=== PATIENT | female | born 1935 | race Caucasian/White ===

== ENCOUNTER 2017-04-07 13:13 | Inpatient (IN) | payer OTHER, BC ==
[~2017-04-07] VITALS: Ht 149.9 cm; Wt 70.4 kg
[~2017-04-07 13:13] MED LIST: ABILIFY5 MG PO; ADVAIR 250/501 DISK IH; ALENDRONATE SOD10 MG PO; ALENDRONATE SOD70 MG PO; ASPIR-TRIN325 M1 PO; ASPIRIN325 MG PO; ATORVASTATIN CA20 MG PO; AVALIDE 300-121 EACH PO; BENADRYL ALLERG25 MG PO; BUSPIRONE HCL15 MG PO; BUSPIRONE HCL30 MG PO; CALCIUM + D TA1 EACH PO; CALCIUM 600 +1 EAC3 PO; CLINDAMYCIN HC300 MG PO; COLACE100 MG PO; COZAAR100 MG PO; DOCUSATE SODIU100 MG PO; FIBER THERAPY660 G1 PO; FLUTICASONE PRO16 GM BOTH NARES; GABAPENTIN300 MG PO; HYDROCHLOROTHIA25 MG PO; INDERAL LA80 MG PO; K-TAB10 MEQ PO; LASIX20 MG PO; LIPITOR20 MG PO; LORATADINE10 M2 PO; LOSARTAN POTAS100 MG PO; MELOXICAM7.5 MG; MELOXICAM7.5 MG PO; METAMUCIL POWD798 GM PO; MOBIC7.5 MG PO; MUCINEX DM ER1 EACH PO; MUCINEX DM1 TABLET PO; MULTIVITAMIN1 EAC1 PO; MYSOLINE50 M1 PO; OMEPRAZOLE20 M3 PO; PHENOBARBITAL30 MG PO; PRILOSEC20 MG PO; PRIMADONE PO; PROAIR HFA8.5 GM IH; Q-TUSSIN DM SY240 ML PO; SENOKOT8.6 MG PO; SERTRALINE HCL100 MG PO; SPIRIVA1 INHALATI IH; TAB-A-VITE1 EACH PO; TRAZODONE HCL50 MG PO; VITAMIN D1000 UNIT PO; ZOLOFT100 MG PO; [UNRECOGNIZED DRUG - OTHER] PO
[2017-04-07 16:02] LABS: EOSINOPHIL COUNT 0.1 K/uL (0-0.3); HEMATOCRIT 38.2 % (36.0-46.0); IMMATURE GRANULOCYTE (%) 0.5 % (0.0-0.7); IMMATURE GRANULOCYTE COUNT 0.1 K/uL; INSTRUMENT ABS NEUTROPHIL CT 10.8 K/uL; LYMPHOCYTE COUNT 0.9 K/uL (1.0-2.8); MCH 27.9 PG (29.0-34.0); MCHC 33.8 G/DL (30.0-36.0); MCV 82.7 FL (83-99); MEAN PLAT.VOLUME 8.8 uM^3 (9.5-12.4); MONOCYTE (%) 7.2 % (3-12); MONOCYTE COUNT 0.9 K/uL (0-0.8); NEUTROPHIL (%) 84.2 % (45-76); NEUTROPHIL COUNT 10.8 K/uL (1.8-6.4); PLATELET COUNT 303 K/uL (156-360); RBC DIS.WIDTH-CV 14.1 % (11.8-14.6); RED BLOOD COUNT 4.62 M/uL (3.80-5.20); WHITE BLOOD COUNT 12.8 K/uL (4.1-10.2)
[2017-04-07 16:11] LABS: CHLORIDE 91 mEq/L (99-109); POTASSIUM 2.8 mEq/L (3.7-5.4); SODIUM 131 mEq/L (136-147)
[2017-04-07 16:13] LABS: GLUCOSE 114 mg/dL (70-99)
[2017-04-07 16:14] LABS: ANION GAP 12 MEQ/L (2-14)
[2017-04-07 16:15] LABS: TOTAL BILIRUBIN 0.3 mg/dL (0.0-1.0)
[2017-04-07 16:16] LABS: ALKALINE PHOSPHATASE 56 IU/L (3-129)
[2017-04-07 16:17] LABS: GFR ESTIMATE (CALCULATED) 57 mL/min/
[2017-04-07 16:18] LABS: UREA NITROGEN (BUN) 25 mg/dL (9-23)
[2017-04-07] MEDS ORDERED: ZOLOFT25 MG PO (20:07)
[2017-04-07] MEDS ORDERED: SERTRALINE HCL100 MG PO (20:08)
[2017-04-07] MEDS ORDERED: SINEMET 25-1001 EACH PO (20:09)
[2017-04-07] MEDS ORDERED: FUROSEMIDE40 MG PO (20:09)
[2017-04-07] MEDS ORDERED: PHENOBARBITAL32.4 MG PO (20:10)
[2017-04-07] MEDS ORDERED: LO-DOSE ASPIRIN81 M2 PO (20:10)
[2017-04-07] MEDS ORDERED: CLINDAMYCIN HC300 MG PO (20:11)
[2017-04-07] MEDS ORDERED: DUONEB 2.5-0.5 M3 ML AEROSOL (20:12)
[2017-04-07] MEDS ORDERED: ROBITUSSIN DM118 ML PO (20:13)
[2017-04-07 23:20] VITALS: BP 134/56
[2017-04-07 23:37] VITALS: BP 134/56
[2017-04-08 07:11] LABS: HEMATOCRIT 37.7 % (36.0-46.0); MCH 27.7 PG (29.0-34.0); MCHC 33.2 G/DL (30.0-36.0); MCV 83.4 FL (83-99); PLATELET COUNT 321 K/uL (156-360); RBC DIS.WIDTH-CV 14.3 % (11.8-14.6); RBC DIS.WIDTH-SD 43.3 % (39-53); RED BLOOD COUNT 4.52 M/uL (3.80-5.20); WHITE BLOOD COUNT 12.2 K/uL (4.1-10.2)
[2017-04-08 07:37] LABS: ALKALINE PHOSPHATASE 51 IU/L (3-129); ANION GAP 12 MEQ/L (2-14); CHLORIDE 93 MEQ/L (99-109); GFR ESTIMATE (CALCULATED) 57 mL/min/; GLUCOSE 103 mg/dL (70-99); SAMPLE HEMOLYSIS CHECK 0; SAMPLE ICTERIC CHECK 0; SAMPLE LIPEMIA CHECK 0; SODIUM 134 MEQ/L (136-147); TOTAL BILIRUBIN 0.4 MG/DL (0.0-1.0); UREA NITROGEN (BUN) 21 mg/dL (9-23)
[2017-04-08 07:38] VITALS: BP 105/55
[2017-04-08 08:15] LABS: MAGNESIUM 1.9 mg/dl (1.3-2.7)
[2017-04-08 12:06] VITALS: BP 128/76
[2017-04-08 17:49] VITALS: BP 120/76
[2017-04-08 19:29] VITALS: BP 128/62
[2017-04-08 23:25] VITALS: BP 131/62
[2017-04-09 04:23] VITALS: BP 150/64
[2017-04-09 07:42] VITALS: BP 146/62
[2017-04-09 11:23] VITALS: BP 143/77
[2017-04-09 13:57] LABS: ANION GAP 11 MEQ/L (2-14); CHLORIDE 97 MEQ/L (99-109); GFR ESTIMATE (CALCULATED) > 59 mL/min/; GLUCOSE 136 mg/dL (70-99); POTASSIUM 2.7 MEQ/L (3.7-5.4); SAMPLE HEMOLYSIS CHECK 0; SAMPLE ICTERIC CHECK 0; SAMPLE LIPEMIA CHECK 0; SODIUM 133 MEQ/L (136-147); UREA NITROGEN (BUN) 14 mg/dL (9-23)
[2017-04-09 15:24] VITALS: BP 128/58
[2017-04-09 19:27] VITALS: BP 146/67
[2017-04-09 23:07] VITALS: BP 145/66
[2017-04-10 04:37] VITALS: BP 168/77
[2017-04-10 06:37] LABS: HEMATOCRIT 37.1 % (36.0-46.0); MCH 27.6 PG (29.0-34.0); MCHC 32.3 G/DL (30.0-36.0); MCV 85.5 FL (83-99); MEAN PLAT.VOLUME 9.1 uM^3 (9.5-12.4); PLATELET COUNT 307 K/uL (156-360); RBC DIS.WIDTH-CV 14.6 % (11.8-14.6); RBC DIS.WIDTH-SD 45.8 % (39-53); RED BLOOD COUNT 4.34 M/uL (3.80-5.20); WHITE BLOOD COUNT 9.7 K/uL (4.1-10.2)
[2017-04-10 07:06] LABS: ANION GAP 6 MEQ/L (2-14); CHLORIDE 102 MEQ/L (99-109); GFR ESTIMATE (CALCULATED) > 59 mL/min/; GLUCOSE 101 mg/dL (70-99); POTASSIUM 4.6 MEQ/L (3.7-5.4); SAMPLE HEMOLYSIS CHECK 0; SAMPLE ICTERIC CHECK 0; SAMPLE LIPEMIA CHECK 0; SODIUM 138 MEQ/L (136-147); UREA NITROGEN (BUN) 14 mg/dL (9-23)
[2017-04-10 07:44] VITALS: BP 148/71; BP 154/88
[2017-04-10 11:33] VITALS: BP 130/59
[2017-04-10 15:39] VITALS: BP 139/63
[2017-04-10 20:22] VITALS: BP 133/60
[2017-04-11] VITALS (7 sets, daily range): BP systolic 132–160; BP diastolic 6–77
[2017-04-11 09:01] LABS: ANION GAP 7 MEQ/L (2-14); CHLORIDE 99 MEQ/L (99-109); GFR ESTIMATE (CALCULATED) > 59 mL/min/; GLUCOSE 112 mg/dL (70-99); SAMPLE HEMOLYSIS CHECK 0; SAMPLE ICTERIC CHECK 0; SAMPLE LIPEMIA CHECK 0; SODIUM 136 MEQ/L (136-147); UREA NITROGEN (BUN) 13 mg/dL (9-23)
[2017-04-12 04:06] VITALS: BP 146/66
[2017-04-12 08:24] VITALS: BP 119/66
[2017-04-12] MEDS ORDERED: CLINDAMYCIN HC300 MG PO (10:14)
[2017-04-12 11:31] VITALS: BP 155/69
== END 2017-04-12 13:34 | DRG 158 ==
LOC: EME 13:13 → EDOF 21:36 → 3EAST 21:36
PROVIDERS: Emergency Medicine; Internal Medicine; Physician Assistant
PROC: 0W953ZZ Drainage of Lower Jaw, Percutaneous Approach (ICD-10-PCS; principal; 2017-04-08)
DX: M27.2 Inflammatory conditions of jaws (principal); L03.211 Cellulitis of face; N17.9 Acute kidney failure, unspecified; E87.1 Hypo-osmolality and hyponatremia; E86.0 Dehydration; E87.6 Hypokalemia; E78.00 Pure hypercholesterolemia, unspecified; J44.9 Chronic obstructive pulmonary disease, unspecified; G20 Parkinson's disease; K21.9 Gastro-esophageal reflux disease without esophagitis; I10 Essential (primary) hypertension; F32.9 Major depressive disorder, single episode, unspecified; E78.5 Hyperlipidemia, unspecified; F41.9 Anxiety disorder, unspecified; Z66 Do not resuscitate; E66.01 Morbid (severe) obesity due to excess calories; Z68.45 Body mass index [BMI] 70 or greater, adult; Z87.891 Personal history of nicotine dependence; Z88.0 Allergy status to penicillin; Z88.1 Allergy status to other antibiotic agents
CPT/HCPCS: 70487; 80048; 80053; 83605; 83735; 84132 91; 85025; 85027; 87070; 87075; 87076; 87205; 94640; 94640 76; 94799; 97530 GO; 97530 GP; 99202; 99281; 99285; J0692; J2270; J2405; J3480; J7030; J7040; J7050; S0028; S0030

== ENCOUNTER 2017-05-25 14:08 | Emergency (ER) | payer OTHER, BC ==
[~2017-05-25] VITALS: Ht 139.7 cm; Wt 83.0 kg
[~2017-05-25 14:08] MED LIST changes: +DUONEB 2.5-0.5 M3 ML AEROSOL; +FUROSEMIDE40 MG PO; +LO-DOSE ASPIRIN81 M2 PO; +PHENOBARBITAL32.4 MG PO; +ROBITUSSIN DM118 ML PO; +SINEMET 25-1001 EACH PO; +ZOLOFT25 MG PO
[2017-05-25 14:30] LABS: EOSINOPHIL COUNT 0.1 K/uL (0-0.3); HEMATOCRIT 34.8 % (36.0-46.0); IMMATURE GRANULOCYTE (%) 0.5 % (0.0-0.7); IMMATURE GRANULOCYTE COUNT 0.1 K/uL; INSTRUMENT ABS NEUTROPHIL CT 11.7 K/uL; LYMPHOCYTE COUNT 0.8 K/uL (1.0-2.8); MCH 28.2 PG (29.0-34.0); MCHC 33.3 G/DL (30.0-36.0); MCV 84.7 FL (83-99); MEAN PLAT.VOLUME 8.7 uM^3 (9.5-12.4); MONOCYTE (%) 6.5 % (3-12); MONOCYTE COUNT 0.9 K/uL (0-0.8); NEUTROPHIL (%) 86.1 % (45-76); NEUTROPHIL COUNT 11.7 K/uL (1.8-6.4); PLATELET COUNT 306 K/uL (156-360); RBC DIS.WIDTH-CV 16.3 % (11.8-14.6); RED BLOOD COUNT 4.11 M/uL (3.80-5.20); WHITE BLOOD COUNT 13.6 K/uL (4.1-10.2)
[2017-05-25 14:38] LABS: CHLORIDE 95 mEq/L (99-109); POTASSIUM 3.1 mEq/L (3.7-5.4); SODIUM 135 mEq/L (136-147)
[2017-05-25 14:40] LABS: GLUCOSE 124 mg/dL (70-99)
[2017-05-25 14:41] LABS: ANION GAP 12 MEQ/L (2-14)
[2017-05-25 14:44] LABS: GFR ESTIMATE (CALCULATED) 46 mL/min/
[2017-05-25 14:45] LABS: UREA NITROGEN (BUN) 29 mg/dL (9-23)
[2017-05-25 15:41] LABS: ADD MIUA? NO; BILIRUBIN NEGATIVE; BLOOD NEGATIVE; COLOR YELLOW ((YELLOW)); GLUCOSE (STRIP) NEGATIVE; KETONES NEGATIVE; LEUKOCYTES NEGATIVE; NITRITE NEGATIVE; PROTEIN (STRIP) NEGATIVE; SPECIFIC GRAVITY 1.008 (1.000-1.030); UCUL ADDED? NO; UROBILINOGEN 0.2 MG/DL (0.2-1.0)
[2017-05-25 17:56] VITALS: BP 134/75
== END 2017-05-25 17:59 ==
LOC: EME 14:08
PROVIDERS: Emergency Medicine
DX: S00.83XA Contusion of other part of head, initial encounter (principal); E87.6 Hypokalemia; W07.XXXA Fall from chair, initial encounter; G20 Parkinson's disease; I10 Essential (primary) hypertension; J44.9 Chronic obstructive pulmonary disease, unspecified; E78.5 Hyperlipidemia, unspecified; K21.9 Gastro-esophageal reflux disease without esophagitis; F32.9 Major depressive disorder, single episode, unspecified; Z88.1 Allergy status to other antibiotic agents; Z87.891 Personal history of nicotine dependence
CPT/HCPCS: 70450; 71010; 80048; 81003; 85025; 99281; 99285

== ENCOUNTER 2017-07-25 11:42 | Inpatient (IN) | payer OTHER, BC ==
[~2017-07-25] VITALS: Ht 160 cm; Wt 81.5 kg
[~2017-07-25 11:42] MED LIST changes: -K-TAB10 MEQ PO; +POTASSIUM CHLO20 ME2 PO; +ROBAFEN DM COU118 M1 PO; -ROBITUSSIN DM118 ML PO
[2017-07-25 13:13] LABS: EOSINOPHIL (%) 0 % (0-5); HEMATOCRIT 35.4 % (36.0-46.0); IMMATURE GRANULOCYTE (%) 1.1 % (0.0-0.7); IMMATURE GRANULOCYTE COUNT 0.2 K/uL; INSTRUMENT ABS NEUTROPHIL CT 15.3 K/uL; LYMPHOCYTE COUNT 0.9 K/uL (1.0-2.8); MCH 28.7 PG (29.0-34.0); MCHC 32.5 G/DL (30.0-36.0); MCV 88.3 FL (83-99); MONOCYTE (%) 4.1 % (3-12); MONOCYTE COUNT 0.7 K/uL (0-0.8); NEUTROPHIL (%) 89.4 % (45-76); NEUTROPHIL COUNT 15.3 K/uL (1.8-6.4); PLATELET COUNT 190 K/uL (156-360); RBC DIS.WIDTH-CV 16.1 % (11.8-14.6); RBC DIS.WIDTH-SD 52.7 % (39-53); RED BLOOD COUNT 4.01 M/uL (3.80-5.20); WHITE BLOOD COUNT 17.1 K/uL (4.1-10.2)
[2017-07-25 13:22] LABS: CHLORIDE 109 mEq/L (99-109); POTASSIUM 4.9 mEq/L (3.7-5.4); SODIUM 138 mEq/L (136-147)
[2017-07-25 13:24] LABS: GLUCOSE 102 mg/dL (70-99)
[2017-07-25 13:25] LABS: ANION GAP 10 MEQ/L (2-14)
[2017-07-25 13:27] LABS: GFR ESTIMATE (CALCULATED) 15 mL/min/
[2017-07-25 13:30] LABS: UREA NITROGEN (BUN) 129 mg/dL (9-23)
[2017-07-25 13:46] LABS: ADD MIUA? YES; BILIRUBIN NEGATIVE; BLOOD NEGATIVE; COLOR YELLOW ((YELLOW)); GLUCOSE (STRIP) NEGATIVE; KETONES NEGATIVE; LEUKOCYTES TRACE; NITRITE NEGATIVE; PROTEIN (STRIP) NEGATIVE; SPECIFIC GRAVITY 1.015 (1.000-1.030); UROBILINOGEN 0.2 MG/DL (0.2-1.0)
[2017-07-25 13:55] LABS: BACTERIA RARE /HPF; EPITHELIAL CELLS RARE /HPF; HYALINE CASTS 30-40 /LPF; MUCUS TRACE /LPF; RED BLOOD CELLS 0-5 /HPF (0-5); UCUL ADDED? NO; WHITE BLOOD CELLS 0-5 /HPF (0-5)
[2017-07-25 14:37] LABS: C DIFF TOXIN NEGATIVE (NEGATIVE); PROBE CHECK PASS; SPECIMEN PROCESSING CONTROL PASS
[2017-07-25] MEDS ORDERED: MILK OF MAGN PO (18:19)
[2017-07-25] MEDS ORDERED: FLEET ENEMA-AD118 ML PR (18:22)
[2017-07-25] MEDS ORDERED: DULCOLAX10 MG PR (18:22)
[2017-07-25] MEDS ORDERED: ALDACTONE25 MG PO (18:25)
[2017-07-25] MEDS ORDERED: MELATONIN1 MG PO (18:26)
[2017-07-25] MEDS ORDERED: DOXYCYCLINE HY100 MG PO (18:33)
[2017-07-25] MEDS ORDERED: PAXIL20 MG PO (18:35)
[2017-07-25] MEDS ORDERED: TYLENOL REGULA325 MG PO (18:36)
[2017-07-25] MEDS ORDERED: REMEDY CALAZIM113 G2 TP (18:39)
[2017-07-25 18:41] VITALS: BP 121/57
[2017-07-25 18:56] LABS: UR CREATININE CONCENTRATION 122.2 MG/DL
[2017-07-25 20:00] VITALS: BP 137/93
[2017-07-25 21:17] LABS: ANION GAP 10 MEQ/L (2-14); POTASSIUM 5.1 MEQ/L (3.7-5.4); SAMPLE HEMOLYSIS CHECK 1; SAMPLE ICTERIC CHECK 0; SAMPLE LIPEMIA CHECK 0; SODIUM 139 MEQ/L (136-147)
[2017-07-25 21:23] LABS: GFR ESTIMATE (CALCULATED) 21 mL/min/; GLUCOSE 98 mg/dL (70-99); UREA NITROGEN (BUN) 113 mg/dL (9-23)
[2017-07-25 21:24] LABS: CHLORIDE 112 MEQ/L (99-109)
[2017-07-25 23:59] VITALS: BP 120/57
[2017-07-26 04:24] VITALS: BP 97/65
[2017-07-26 05:36] LABS: HEMATOCRIT 32.8 % (36.0-46.0); MCH 30.1 PG (29.0-34.0); MCHC 33.2 G/DL (30.0-36.0); MCV 90.6 FL (83-99); MEAN PLAT.VOLUME 10.2 uM^3 (9.5-12.4); PLATELET COUNT 161 K/uL (156-360); RBC DIS.WIDTH-CV 16.7 % (11.8-14.6); RBC DIS.WIDTH-SD 54.6 % (39-53); RED BLOOD COUNT 3.62 M/uL (3.80-5.20)
[2017-07-26 06:04] LABS: ALKALINE PHOSPHATASE 86 IU/L (3-129); ANION GAP 9 MEQ/L (2-14); CHLORIDE 116 MEQ/L (99-109); GLUCOSE 83 mg/dL (70-99); SAMPLE HEMOLYSIS CHECK 0; SAMPLE ICTERIC CHECK 0; SAMPLE LIPEMIA CHECK 0; TOTAL BILIRUBIN 0.4 MG/DL (0.0-1.0); UREA NITROGEN (BUN) 92 mg/dL (9-23)
[2017-07-26 06:07] LABS: GFR ESTIMATE (CALCULATED) 27 mL/min/; SODIUM 146 MEQ/L (136-147)
[2017-07-26 07:40] VITALS: BP 135/93
[2017-07-26 11:30] VITALS: BP 116/57
[2017-07-26 16:00] VITALS: BP 118/58
[2017-07-26 19:30] VITALS: BP 153/116
[2017-07-26 23:32] VITALS: BP 105/58
[2017-07-27 04:24] VITALS: BP 105/56
[2017-07-27 05:41] LABS: EOSINOPHIL (%) 0.8 % (0-5); EOSINOPHIL COUNT 0.1 K/uL (0-0.3); HEMATOCRIT 33.9 % (36.0-46.0); IMMATURE GRANULOCYTE (%) 1.4 % (0.0-0.7); IMMATURE GRANULOCYTE COUNT 0.2 K/uL; INSTRUMENT ABS NEUTROPHIL CT 9.7 K/uL; LYMPHOCYTE COUNT 1.2 K/uL (1.0-2.8); MCH 28.8 PG (29.0-34.0); MCHC 31.6 G/DL (30.0-36.0); MCV 91.1 FL (83-99); MEAN PLAT.VOLUME 10.4 uM^3 (9.5-12.4); MONOCYTE (%) 5.7 % (3-12); MONOCYTE COUNT 0.7 K/uL (0-0.8); NEUTROPHIL (%) 81.7 % (45-76); NEUTROPHIL COUNT 9.7 K/uL (1.8-6.4); PLATELET COUNT 169 K/uL (156-360); RBC DIS.WIDTH-CV 16.7 % (11.8-14.6); RBC DIS.WIDTH-SD 56.7 % (39-53); RED BLOOD COUNT 3.72 M/uL (3.80-5.20); WHITE BLOOD COUNT 11.8 K/uL (4.1-10.2)
[2017-07-27 06:38] LABS: ANION GAP 10 MEQ/L (2-14); CHLORIDE 118 MEQ/L (99-109); GLUCOSE 80 mg/dL (70-99); POTASSIUM 3.3 MEQ/L (3.7-5.4); SAMPLE HEMOLYSIS CHECK 0; SAMPLE ICTERIC CHECK 0; SAMPLE LIPEMIA CHECK 0; SODIUM 150 MEQ/L (136-147); UREA NITROGEN (BUN) 61 mg/dL (9-23)
[2017-07-27 06:41] LABS: GFR ESTIMATE (CALCULATED) 38 mL/min/; VANCOMYCIN, TROUGH 7.2 MCG/ML (10-20)
[2017-07-27 08:00] VITALS: BP 100/71
[2017-07-27 11:15] VITALS: BP 111/89
[2017-07-27 15:24] VITALS: BP 102/68
[2017-07-27 19:24] VITALS: BP 137/60
[2017-07-27 23:51] VITALS: BP 158/74
[2017-07-28 03:30] VITALS: BP 100/46
[2017-07-28 05:44] LABS: EOSINOPHIL (%) 2.4 % (0-5); EOSINOPHIL COUNT 0.3 K/uL (0-0.3); HEMATOCRIT 30.2 % (36.0-46.0); IMMATURE GRANULOCYTE (%) 1.6 % (0.0-0.7); IMMATURE GRANULOCYTE COUNT 0.2 K/uL; INSTRUMENT ABS NEUTROPHIL CT 9.2 K/uL; LYMPHOCYTE COUNT 2.2 K/uL (1.0-2.8); MCH 29.6 PG (29.0-34.0); MCHC 32.5 G/DL (30.0-36.0); MCV 91.2 FL (83-99); MEAN PLAT.VOLUME 10.3 uM^3 (9.5-12.4); MONOCYTE (%) 7.8 % (3-12); NEUTROPHIL (%) 71.2 % (45-76); NEUTROPHIL COUNT 9.2 K/uL (1.8-6.4); PLATELET COUNT 158 K/uL (156-360); RBC DIS.WIDTH-CV 16.7 % (11.8-14.6); RBC DIS.WIDTH-SD 55.8 % (39-53); RED BLOOD COUNT 3.31 M/uL (3.80-5.20); WHITE BLOOD COUNT 12.9 K/uL (4.1-10.2)
[2017-07-28 06:13] LABS: ANION GAP 8 MEQ/L (2-14); CHLORIDE 115 MEQ/L (99-109); CHLORIDE 117 MEQ/L (99-109); GFR ESTIMATE (CALCULATED) 42 mL/min/; POTASSIUM 3.2 MEQ/L (3.7-5.4); SAMPLE HEMOLYSIS CHECK 0; SAMPLE ICTERIC CHECK 0; SAMPLE LIPEMIA CHECK 0; SODIUM 147 MEQ/L (136-147); SODIUM 148 MEQ/L (136-147); UREA NITROGEN (BUN) 48 mg/dL (9-23)
[2017-07-28 06:16] LABS: GLUCOSE 104 mg/dL (70-99); GLUCOSE 105 mg/dL (70-99)
[2017-07-28 07:30] VITALS: BP 171/84
[2017-07-28 13:15] VITALS: BP 133/74
[2017-07-28 16:15] VITALS: BP 127/85
[2017-07-28 20:00] VITALS: BP 150/65
[2017-07-29 01:00] VITALS: BP 150/60
[2017-07-29 04:45] VITALS: BP 150/56
[2017-07-29 05:31] LABS: EOSINOPHIL (%) 2.6 % (0-5); EOSINOPHIL COUNT 0.4 K/uL (0-0.3); HEMATOCRIT 33.5 % (36.0-46.0); IMMATURE GRANULOCYTE (%) 1.2 % (0.0-0.7); IMMATURE GRANULOCYTE COUNT 0.2 K/uL; INSTRUMENT ABS NEUTROPHIL CT 9.9 K/uL; MCH 30.2 PG (29.0-34.0); MCHC 33.4 G/DL (30.0-36.0); MCV 90.3 FL (83-99); MEAN PLAT.VOLUME 10.8 uM^3 (9.5-12.4); MONOCYTE (%) 7.2 % (3-12); NEUTROPHIL (%) 73.7 % (45-76); NEUTROPHIL COUNT 9.9 K/uL (1.8-6.4); PLATELET COUNT 181 K/uL (156-360); RBC DIS.WIDTH-CV 16.5 % (11.8-14.6); RED BLOOD COUNT 3.71 M/uL (3.80-5.20); WHITE BLOOD COUNT 13.4 K/uL (4.1-10.2)
[2017-07-29 05:55] LABS: ANION GAP 8 MEQ/L (2-14); CHLORIDE 110 MEQ/L (99-109); GFR ESTIMATE (CALCULATED) 56 mL/min/; GLUCOSE 92 mg/dL (70-99); POTASSIUM 3.8 MEQ/L (3.7-5.4); SAMPLE HEMOLYSIS CHECK 0; SAMPLE ICTERIC CHECK 0; SAMPLE LIPEMIA CHECK 0; SODIUM 142 MEQ/L (136-147); UREA NITROGEN (BUN) 32 mg/dL (9-23)
[2017-07-29 18:41] VITALS: BP 158/74
[2017-07-29 20:15] VITALS: BP 134/58
[2017-07-30 00:27] VITALS: BP 136/63
[2017-07-30 06:56] LABS: ANION GAP 10 MEQ/L (2-14); CHLORIDE 113 MEQ/L (99-109); GFR ESTIMATE (CALCULATED) > 59 mL/min/; GLUCOSE 81 mg/dL (70-99); SAMPLE HEMOLYSIS CHECK 0; SAMPLE ICTERIC CHECK 0; SAMPLE LIPEMIA CHECK 0; SODIUM 143 MEQ/L (136-147); UREA NITROGEN (BUN) 29 mg/dL (9-23)
[2017-07-30 07:02] LABS: WHITE BLOOD COUNT ND K/uL (4.1-10.2)
[2017-07-30 07:03] LABS: HEMATOCRIT ND % (36.0-46.0); MCH ND PG (29.0-34.0); MCHC ND G/DL (30.0-36.0); MCV ND FL (83-99); RED BLOOD COUNT ND M/uL (3.80-5.20)
[2017-07-30 07:04] LABS: ANION GAP 9 MEQ/L (2-14); CHLORIDE 112 MEQ/L (99-109); EOSINOPHIL (%) ND % (0-5); GFR ESTIMATE (CALCULATED) > 59 mL/min/; GLUCOSE 81 mg/dL (70-99); MEAN PLAT.VOLUME ND uM^3 (9.5-12.4); MONOCYTE (%) ND % (3-12); NEUTROPHIL (%) ND % (45-76); PLATELET COUNT ND K/uL (156-360); POTASSIUM 4.2 MEQ/L (3.7-5.4); RBC DIS.WIDTH-CV ND % (11.8-14.6); RBC DIS.WIDTH-SD ND % (39-53); SAMPLE HEMOLYSIS CHECK 1; SAMPLE ICTERIC CHECK 0; SAMPLE LIPEMIA CHECK 0; SODIUM 141 MEQ/L (136-147); UREA NITROGEN (BUN) 29 mg/dL (9-23)
[2017-07-30 07:05] LABS: BASOPHIL COUNT ND K/uL (0-0.1); EOSINOPHIL COUNT ND K/uL (0-0.3); IMMATURE GRANULOCYTE (%) ND % (0.0-0.7); LYMPHOCYTE COUNT ND K/uL (1.0-2.8); MONOCYTE COUNT ND K/uL (0-0.8); NEUTROPHIL COUNT ND K/uL (1.8-6.4)
[2017-07-30 07:06] LABS: IMMATURE GRANULOCYTE COUNT ND K/uL; INSTRUMENT ABS NEUTROPHIL CT ND K/uL; NRBC (%) ND /100 WBC (0-0)
[2017-07-30 07:50] LABS: EOSINOPHIL COUNT 0.2 K/uL (0-0.3); HEMATOCRIT 33.2 % (36.0-46.0); IMMATURE GRANULOCYTE (%) 1.7 % (0.0-0.7); IMMATURE GRANULOCYTE COUNT 0.3 K/uL; LYMPHOCYTE COUNT 2.2 K/uL (1.0-2.8); MCH 29.8 PG (29.0-34.0); MCV 87.6 FL (83-99); MEAN PLAT.VOLUME 11.1 uM^3 (9.5-12.4); MONOCYTE (%) 6.6 % (3-12); NEUTROPHIL (%) 76.4 % (45-76); PLATELET COUNT 200 K/uL (156-360); RBC DIS.WIDTH-CV 16.3 % (11.8-14.6); RED BLOOD COUNT 3.79 M/uL (3.80-5.20); WHITE BLOOD COUNT 15.7 K/uL (4.1-10.2)
[2017-07-30 08:25] VITALS: BP 132/62
[2017-07-30 09:25] VITALS: BP 122/58
[2017-07-30 11:25] VITALS: BP 140/62
[2017-07-30 16:36] VITALS: BP 126/58
[2017-07-30 20:09] VITALS: BP 130/69
[2017-07-31 04:34] VITALS: BP 126/68
[2017-07-31 06:44] LABS: EOSINOPHIL (%) 1.3 % (0-5); EOSINOPHIL COUNT 0.2 K/uL (0-0.3); HEMATOCRIT 32.7 % (36.0-46.0); IMMATURE GRANULOCYTE (%) 1.2 % (0.0-0.7); IMMATURE GRANULOCYTE COUNT 0.2 K/uL; INSTRUMENT ABS NEUTROPHIL CT 10.5 K/uL; LYMPHOCYTE COUNT 2.6 K/uL (1.0-2.8); MCH 29.9 PG (29.0-34.0); MCHC 33.9 G/DL (30.0-36.0); MCV 88.1 FL (83-99); MEAN PLAT.VOLUME 11.2 uM^3 (9.5-12.4); MONOCYTE (%) 6.7 % (3-12); NEUTROPHIL (%) 72.8 % (45-76); NEUTROPHIL COUNT 10.5 K/uL (1.8-6.4); PLATELET COUNT 190 K/uL (156-360); RBC DIS.WIDTH-CV 16.5 % (11.8-14.6); RBC DIS.WIDTH-SD 53.5 % (39-53); RED BLOOD COUNT 3.71 M/uL (3.80-5.20); WHITE BLOOD COUNT 14.5 K/uL (4.1-10.2)
[2017-07-31 07:10] LABS: ANION GAP 13 MEQ/L (2-14); CHLORIDE 109 MEQ/L (99-109); GFR ESTIMATE (CALCULATED) 56 mL/min/; GLUCOSE 86 mg/dL (70-99); POTASSIUM 3.7 MEQ/L (3.7-5.4); SAMPLE HEMOLYSIS CHECK 0; SAMPLE ICTERIC CHECK 0; SAMPLE LIPEMIA CHECK 0; SODIUM 146 MEQ/L (136-147); UREA NITROGEN (BUN) 32 mg/dL (9-23)
[2017-07-31 07:38] VITALS: BP 116/72
[2017-07-31 11:29] VITALS: BP 126/64
[2017-07-31] MEDS ORDERED: CEPHALEXIN500 MG PO (12:40)
[2017-07-31] MEDS ORDERED: TRAZODONE HCL50 MG PO (12:41)
[2017-07-31] MEDS ORDERED: COZAAR100 MG PO (12:42)
[2017-07-31 16:07] VITALS: BP 133/92
== END 2017-07-31 18:14 | DRG 871 ==
LOC: EME 11:42 → EDOF 15:30 → 4EAST 15:30 → ENRESERV 15:34 → 4EAST 18:09 → ENRESERV 07-27 15:56 → CANRESERV 07-27 15:56 → 4EAST 07-28 10:26 → ENRESERV 07-29 15:39 → 3EAST 07-29 18:11
PROVIDERS: Emergency Medicine; Internal Medicine; Internal Medicine Nephrology
DX: A41.51 Sepsis due to Escherichia coli [E. coli] (principal); G93.41 Metabolic encephalopathy; E86.0 Dehydration; E87.2 Acidosis; G20 Parkinson's disease; J44.9 Chronic obstructive pulmonary disease, unspecified; N39.0 Urinary tract infection, site not specified; N17.9 Acute kidney failure, unspecified; E87.6 Hypokalemia; E78.5 Hyperlipidemia, unspecified; M27.2 Inflammatory conditions of jaws; F32.9 Major depressive disorder, single episode, unspecified; K12.2 Cellulitis and abscess of mouth; I10 Essential (primary) hypertension; Z66 Do not resuscitate; M86.9 Osteomyelitis, unspecified; D63.8 Anemia in other chronic diseases classified elsewhere; R48.8 Other symbolic dysfunctions; E66.9 Obesity, unspecified; Z68.30 Body mass index [BMI] 30.0-30.9, adult; E86.1 Hypovolemia; E87.0 Hyperosmolality and hypernatremia; E83.39 Other disorders of phosphorus metabolism; K57.30 Diverticulosis of large intestine without perforation or abscess without bleeding; K21.9 Gastro-esophageal reflux disease without esophagitis; R13.10 Dysphagia, unspecified; R47.02 Dysphasia; K04.7 Periapical abscess without sinus; F41.9 Anxiety disorder, unspecified; N12 Tubulo-interstitial nephritis, not specified as acute or chronic; N27.1 Small kidney, bilateral; Z87.891 Personal history of nicotine dependence; Z88.0 Allergy status to penicillin; Z88.1 Allergy status to other antibiotic agents
CPT/HCPCS: 70450; 70486; 71010; 74176; 76770; 80048 91; 80053; 80069; 80184; 80202; 81003; 82570; 83605; 84300; 85025; 85025 91; 85027; 85651; 86140; 87040; 87077; 87086; 87186; 87493; 87506; 87801; 92526 GN; 92610 GN; 93005; 93306; 94640; 94640 76; 94799; 99202; 99281; 99285; J0692; J0696; J1644; J3370; J3480; J7030; J7050; J7070; S0028